=== PATIENT | male | born 1980 | race Caucasian/White ===

== ENCOUNTER 2022-11-07 13:20 | Emergency (ER) | payer BC, OTHER ==
[2022-11-07 13:46] VITALS: BP 136/96; PULSE 79; RESP 18; TEMP 98.3; BMI 23.6
== END 2022-11-07 15:15 | disposition home or self-care (01) ==
LOC: JER 13:20
DX: R42 Dizziness and giddiness (principal)
CPT/HCPCS: 93005; 93010; 99283-25